=== PATIENT | male | born 1970 | race Two or more races ===

== ENCOUNTER 2018-08-02 06:06 | Emergency (ER) | payer SELFPAY ==
[~2018-08-02] VITALS: Ht 170.2 cm; Wt 79.5 kg
[2018-08-02 06:08] VITALS: BP 141/104
== END 2018-08-02 08:53 | disposition left against medical advice (07) ==
LOC: ER 06:06
DX: M79.672 Pain in left foot (principal); M79.671 Pain in right foot; Z53.21 Procedure and treatment not carried out due to patient leaving prior to being seen by health care provider